=== PATIENT | male | born 1960 | race Caucasian/White ===

== ENCOUNTER 2020-06-17 15:37 | Inpatient (IN) | payer MEDICAID ==
[~2020-06-17] VITALS: Ht 172.7 cm; Wt 84.7 kg
[2020-06-17] MEDS ORDERED: AMLO-258 PO (15:54)
[2020-06-17] MEDS ORDERED: ATEN-72 PO (15:54)
[2020-06-17] MEDS ORDERED: LOSA50TA37 PO (15:54)
[2020-06-17] MEDS ORDERED: LORazepam 1 MG TABLET PO ONE (16:45)
[2020-06-17] MEDS ORDERED: FURO20 PO (17:13)
[2020-06-17] MEDS ORDERED: HydrALAZINE HCL 20 MG/ML VIAL IVP ONE ×2 (17:15→17:45)
[2020-06-17 17:21] LABS: BASOPHILS % (AUTO) 0.9 % (0.0-2.0); EOSINOPHILS % (AUTO) 0.6 % (1.0-6.0); HEMATOCRIT 44.8 % (41-53); LYMPHOCYTES # (AUTO) 1.1 K/uL (1.0-4.8); LYMPHOCYTES % (AUTO) 13.2 % (22.0-44.0); MEAN CORPUSCULAR HEMOGLOBIN 32.1 pg (26.0-34.0); MEAN CORPUSCULAR HGB CONC 33.5 G/dL (31.0-37.0); MEAN CORPUSCULAR VOLUME 96 fL (80-100); MONOCYTES # (AUTO) 0.7 K/uL (0.1-1.0); MONOCYTES % (AUTO) 8.9 % (2.0-9.0); NEUTROPHILS # (AUTO) 6.2 K/uL (1.8-7.7); NEUTROPHILS % (AUTO) 76.4 % (40.0-70.0); PLATELET COUNT (AUTO) 145 K/uL (150-450); RED BLOOD CELL COUNT(AUTO) 4.68 MIL/uL (4.50-5.90); RED CELL DISTRIBUTION WIDTH 13.1 % (11.5-14.5)
[2020-06-17 17:33] LABS: PROTHROMBIN TIME 10.7 SEC (9.4-11.6)
[2020-06-17 17:51] LABS: B-TYPE NATRIURETIC PEPTIDE 53 pg/mL (0-100)
[2020-06-17 17:57] LABS: ANION GAP 10 mmol/L (8-16); CALCIUM, TOTAL 8.8 mg/dL (8.8-10.5); CARBON DIOXIDE 29 mmol/L (22-29); CHLORIDE 100 mmol/L (98-107); CREATININE 1.05 mg/dL (0.60-1.30); GLOMERULAR FILTR. RATE CALC > 60 mL/min (>60); GLUCOSE,RANDOM 104 mg/dL (70-110); POTASSIUM 3.6 mmol/L (3.5-5.1); SODIUM SERUM 139 mmol/L (136-145); UREA NITROGEN, BLOOD 17 mg/dL (7-18)
[2020-06-17 18:01] LABS: BILIRUBIN,URINE NEGATIVE (NEGATIVE); GLUCOSE, URINE (UA) NEGATIVE (NEGATIVE); KETONES,URINE NEGATIVE (NEGATIVE); LEUKOCYTE ESTERASE ,URINE NEGATIVE (NEGATIVE); NITRATE,URINE NEGATIVE (NEGATIVE); OCCULT BLOOD,URINE NEGATIVE (NEGATIVE); PROTEIN,URINE NEGATIVE (NEGATIVE); UROBILINOGEN,URINE 0.2 mg/dL (<=1.0)
[2020-06-17 18:07] LABS: APPEARANCE,URINE CLEAR (CLEAR)
[2020-06-17 18:22] LABS: ALANINE AMINOTRANSFERASE 24 U/L (12-78); ALBUMIN 4.2 g/dL (3.4-5.0); ALKALINE PHOSPHATASE 79 U/L (46-116); ASPARTATE AMINOTRANSFERASE 16 U/L (15-37); BILIRUBIN,TOTAL 0.6 mg/dL (0.1-1.0); CREATINE KINASE, TOTAL ONLY 83 U/L (39-308); TOTAL PROTEIN, SERUM 7.3 g/dL (6.4-8.2)
[2020-06-17] MEDS ORDERED: ASPIRIN 325 MG DR TABLET PO ONE (19:15)
[2020-06-17 19:58] LABS: COVID AG,FIA SOURCE NASOPHARYNGEAL
[2020-06-17] MEDS ORDERED: 0.9% SODIUM CHLORIDE 10 ML SYRINGE IVP PRN (20:00)
[2020-06-17] MEDS ORDERED: ACETAMINOPHEN 325 MG TABLET PO PRN (20:30)
[2020-06-17] MEDS ORDERED: ONDANSETRON HCL 4 MG/2 ML VIAL IVP PRN (20:30)
[2020-06-17] MEDS: HEPARIN SODIUM,PORCINE 5,000 UNITS/ML VIAL SQ SCH (20:47)
[2020-06-17] MEDS ORDERED: ATORVASTATIN CALCIUM 20 MG TABLET PO SCH (21:00)
[2020-06-17 21:27] LABS: CHOL/HDL RATIO 3.2 (4.2-7.3); CHOLESTEROL 218 mg/dL (131-200); HDL CHOLESTEROL 69 mg/dL (40-60); LDL CHOL (CALC.) 134 mg/dL (0-130); TRIGLYCERIDES 75 mg/dL (15-150)
[2020-06-17 21:33] LABS: HEMOGLOBIN A1C 5.3 % (3.8-5.6)
[2020-06-17 22:13] VITALS: BP 155/88
[2020-06-18] VITALS (8 sets, daily range): BP systolic 129–191; BP diastolic 77–109
[2020-06-18] MEDS ORDERED: LORazepam 2 MG TABLET PO PRN (07:15)
[2020-06-18] MEDS ORDERED: MAGNESIUM SULFATE 2 GM, MVI, ADULT NO.1 WITH VIT K 10 ML, THIAMINE 100 MG, FOLIC ACID 1... IV SCH ×5 (08:00)
[2020-06-18] MEDS: ASPIRIN 81 MG CHEWABLE TABLET PO SCH (09:27)
[2020-06-18] MEDS: HEPARIN SODIUM,PORCINE 5,000 UNITS/ML VIAL SQ SCH ×2 (09:28→21:03)
[2020-06-18] MEDS ORDERED: LORazepam 2 MG/ML VIAL IVP PRN (10:15)
[2020-06-18] MEDS: AmLODIPine BESYLATE 10 MG TABLET PO SCH (13:10)
[2020-06-18] MEDS: CloNIDine HCL 0.1 MG TABLET PO PRN (15:39)
[2020-06-18] MEDS: ATORVASTATIN CALCIUM 40 MG TABLET PO SCH (21:03)
[2020-06-19] VITALS (7 sets, daily range): BP systolic 98–174; BP diastolic 43–102
[2020-06-19] MEDS ORDERED: LORazepam 2 MG TABLET PO PRN (07:00)
[2020-06-19] MEDS ORDERED: GELATIN SPONGE,ABSORBABLE 100 MM TP ONE ×2 (08:16→09:22)
[2020-06-19] MEDS ORDERED: GELATIN SPONGE,ABSORBABLE 50 MM TP ONE ×2 (08:16→09:22)
[2020-06-19] MEDS: HEPARIN SODIUM,PORCINE 5,000 UNITS/ML VIAL SQ SCH ×2 (08:30→20:17)
[2020-06-19] MEDS: AmLODIPine BESYLATE 10 MG TABLET PO SCH (08:47)
[2020-06-19] MEDS: CloNIDine HCL 0.1 MG TABLET PO PRN (08:47)
[2020-06-19] MEDS: MULTIVITAMINS WITH MINERALS, THERAPEUTIC TABLET PO SCH (08:48)
[2020-06-19] MEDS: ASPIRIN 81 MG CHEWABLE TABLET PO SCH (08:48)
[2020-06-19] MEDS ORDERED: LORazepam 2 MG TABLET PO SCH (09:00)
[2020-06-19] MEDS ORDERED: HEPARIN SODIUM,PORCINE 5,000 UNITS/ML VIAL ONE (09:19)
[2020-06-19] MEDS ORDERED: SODIUM CHLORIDE 0.9% 500 ML IV ONE ×4 (09:19→10:01)
[2020-06-19] MEDS ORDERED: THROMBIN, BOVINE 20000 UNITS/VIAL POWDER TP ONE (09:21)
[2020-06-19] MEDS ORDERED: PHENYLEPHRINE 200 MG/D5%-WATER 250 ML IV PRN (09:30)
[2020-06-19] MEDS ORDERED: SODIUM CHLORIDE 0.9% 0 ML ONE (09:43)
[2020-06-19] MEDS ORDERED: NITROPRUSSIDE SODIUM 50 MG in DEXTROSE 5%-WATER 248 ML IV PRN (09:45)
[2020-06-19] MEDS ORDERED: ACETAMINOPHEN 1000 MG/ISO-OSM 100 ML IV ONE (10:09)
[2020-06-19] MEDS ORDERED: MICROFIBRILLAR COLLAGEN 1 GM PACKAGE TP ONE (10:09)
[2020-06-19] MEDS ORDERED: RINGERS SOLUTION,LACTATED 1,000 ML IV ONE ×3 (10:25→10:58)
[2020-06-19] MEDS ORDERED: VANCOMYCIN HCL 1 GM/VIAL ONE (11:03)
[2020-06-19] MEDS ORDERED: VANCOMYCIN HCL 500 MG/VIAL ONE (11:04)
[2020-06-19] MEDS ORDERED: SUGAMMADEX SODIUM 200 MG/2 ML VIAL IVP ONE ×2 (11:29→12:09)
[2020-06-19] MEDS ORDERED: HYDROCODONE/ACETAMINOPHEN 5-325 MG TABLET PO PRN (12:15)
[2020-06-19] MEDS: ATORVASTATIN CALCIUM 40 MG TABLET PO SCH (20:17)
[2020-06-20] VITALS (7 sets, daily range): BP systolic 132–168; BP diastolic 56–105
[2020-06-20] MEDS ORDERED: DEXAMETHASONE SOD PHOS 4 MG/ML VIAL IVP ONE (01:25)
[2020-06-20] MEDS ORDERED: PROPOFOL 1% 20 ML VIAL IVP ONE (01:25)
[2020-06-20] MEDS ORDERED: FentaNYL CITRATE PF 100 MCG/2 ML VIAL IVP ONE (01:25)
[2020-06-20] MEDS ORDERED: MIDAZOLAM HCL 2 MG/2 ML VIAL IVP ONE (01:25)
[2020-06-20] MEDS ORDERED: LIDOCAINE/PF 2% 5 ML VIAL IM ONE (01:25)
[2020-06-20] MEDS ORDERED: ONDANSETRON HCL 4 MG/2 ML VIAL IVP ONE (01:25)
[2020-06-20] MEDS ORDERED: ROCURONIUM BROMIDE 10 MG/ML 5 ML VIAL IVP ONE (01:25)
[2020-06-20] MEDS: ASPIRIN 81 MG CHEWABLE TABLET PO SCH (08:11)
[2020-06-20] MEDS: AmLODIPine BESYLATE 10 MG TABLET PO SCH (08:11)
[2020-06-20] MEDS: MULTIVITAMINS WITH MINERALS, THERAPEUTIC TABLET PO SCH (08:11)
[2020-06-20] MEDS: HEPARIN SODIUM,PORCINE 5,000 UNITS/ML VIAL SQ SCH ×2 (08:12→20:09)
[2020-06-20 11:09] LABS: BASOPHILS % (AUTO) 0.6 % (0.0-2.0); EOSINOPHILS % (AUTO) 0.1 % (1.0-6.0); HEMATOCRIT 44.4 % (41-53); HEMOGLOBIN 14.6 g/dL (13.5-17.5); LYMPHOCYTES # (AUTO) 1.9 K/uL (1.0-4.8); LYMPHOCYTES % (AUTO) 14.1 % (22.0-44.0); MEAN CORPUSCULAR HEMOGLOBIN 31.6 pg (26.0-34.0); MEAN CORPUSCULAR VOLUME 96 fL (80-100); MONOCYTES # (AUTO) 1.3 K/uL (0.1-1.0); MONOCYTES % (AUTO) 9.5 % (2.0-9.0); NEUTROPHILS # (AUTO) 10.1 K/uL (1.8-7.7); NEUTROPHILS % (AUTO) 75.7 % (40.0-70.0); PLATELET COUNT (AUTO) 171 K/uL (150-450); RED BLOOD CELL COUNT(AUTO) 4.64 MIL/uL (4.50-5.90); RED CELL DISTRIBUTION WIDTH 12.5 % (11.5-14.5)
[2020-06-20 11:17] LABS: ANION GAP 6 mmol/L (8-16); CALCIUM, TOTAL 8.6 mg/dL (8.8-10.5); CARBON DIOXIDE 29 mmol/L (22-29); CHLORIDE 103 mmol/L (98-107); CREATININE 1.11 mg/dL (0.60-1.30); GLOMERULAR FILTR. RATE CALC > 60 mL/min (>60); GLUCOSE,RANDOM 84 mg/dL (70-110); POTASSIUM 4.2 mmol/L (3.5-5.1); SODIUM SERUM 138 mmol/L (136-145); UREA NITROGEN, BLOOD 20 mg/dL (7-18)
[2020-06-20] MEDS: LISINOPRIL 20 MG TABLET PO SCH (12:05)
[2020-06-20] MEDS: ATORVASTATIN CALCIUM 40 MG TABLET PO SCH (20:09)
[2020-06-21 05:00] VITALS: BP 172/108
[2020-06-21] MEDS: CloNIDine HCL 0.1 MG TABLET PO PRN (05:28)
[2020-06-21 06:21] LABS: BASOPHILS % (AUTO) 0.4 % (0.0-2.0); EOSINOPHILS % (AUTO) 0.9 % (1.0-6.0); HEMATOCRIT 39.8 % (41-53); HEMOGLOBIN 13.5 g/dL (13.5-17.5); LYMPHOCYTES # (AUTO) 1.5 K/uL (1.0-4.8); LYMPHOCYTES % (AUTO) 20.5 % (22.0-44.0); MEAN CORPUSCULAR HEMOGLOBIN 32.9 pg (26.0-34.0); MEAN CORPUSCULAR HGB CONC 34.1 G/dL (31.0-37.0); MEAN CORPUSCULAR VOLUME 97 fL (80-100); MONOCYTES # (AUTO) 0.8 K/uL (0.1-1.0); MONOCYTES % (AUTO) 10.9 % (2.0-9.0); NEUTROPHILS # (AUTO) 4.8 K/uL (1.8-7.7); NEUTROPHILS % (AUTO) 67.3 % (40.0-70.0); PLATELET COUNT (AUTO) 132 K/uL (150-450); RED BLOOD CELL COUNT(AUTO) 4.12 MIL/uL (4.50-5.90); RED CELL DISTRIBUTION WIDTH 12.7 % (11.5-14.5)
[2020-06-21] MEDS ORDERED: LORazepam 1 MG TABLET PO PRN (07:00)
[2020-06-21 07:45] VITALS: BP 148/104
[2020-06-21] MEDS: LISINOPRIL 20 MG TABLET PO SCH (08:02)
[2020-06-21] MEDS: AmLODIPine BESYLATE 10 MG TABLET PO SCH (08:02)
[2020-06-21] MEDS: ASPIRIN 81 MG CHEWABLE TABLET PO SCH (08:02)
[2020-06-21] MEDS: MULTIVITAMINS WITH MINERALS, THERAPEUTIC TABLET PO SCH (08:02)
[2020-06-21] MEDS: HEPARIN SODIUM,PORCINE 5,000 UNITS/ML VIAL SQ SCH (08:03)
[2020-06-21] MEDS ORDERED: LORazepam 1 MG TABLET PO SCH (09:00)
[2020-06-21] MEDS ORDERED: ASPI-1450 PO (10:26)
[2020-06-21] MEDS ORDERED: ATOR20TA86 PO (10:26)
[2020-06-21] MEDS ORDERED: MULT-1203 PO (10:27)
[2020-06-21] MEDS ORDERED: LISI-894 PO (10:27)
[2020-06-21] MEDS ORDERED: ATENOLOL 50 MG TABLET PO SCH (10:30)
[2020-06-21 11:00] VITALS: BP 136/85
[2020-06-22] MEDS ORDERED: LORazepam 1 MG TABLET PO PRN (07:00)
== END 2020-06-21 13:50 | disposition home or self-care (01) | DRG 24 ==
LOC: EMS 15:38 → 5S 20:05
PROVIDERS: ADMIT Internal Medicine; ATTEND Internal Medicine
PROC: 03UL0JZ Supplement Left Internal Carotid Artery with Synthetic Substitute, Open Approach (ICD-10-PCS; 2020-06-19)
PROC: 03CL0ZZ Extirpation of Matter from Left Internal Carotid Artery, Open Approach (ICD-10-PCS; principal; 2020-06-19 11:00)
DX: I65.22 Occlusion and stenosis of left carotid artery (principal); F10.20 Alcohol dependence, uncomplicated; I10 Essential (primary) hypertension; F41.9 Anxiety disorder, unspecified; I16.1 Hypertensive emergency; Z20.822 Contact with and (suspected) exposure to COVID-19; Z88.0 Allergy status to penicillin; Z79.899 Other long term (current) drug therapy
CPT/HCPCS: 70450; 70551; 71045; 80048; 80053; 80061; 81003; 82550; 83036; 83880; 84484; 85025; 85610; 85730; 87426; 88304; 88311; 93005; 93306; 93880; 99291; A9575; G0378; J0131; J0360; J0690; J1100; J1644; J2250; J2370; J2405; J2704; J3010; J3370; J3411; J3475; J3490; J7030; J7040; J7060; J7120; 36415-L1; 36415-TC

== ENCOUNTER 2020-06-23 08:41 | Emergency (ER) | payer MEDICAID ==
[~2020-06-23] VITALS: Ht 172.7 cm; Wt 84.7 kg
[~2020-06-23 08:41] MED LIST: AMLO-258 PO; ASPI-1450 PO; ATEN-72 PO; ATOR20TA86 PO; LISI-894 PO; LOSA50TA37 PO; MULT-1203 PO
[2020-06-23 10:05] VITALS: BP 149/111
== END 2020-06-23 10:12 | disposition home or self-care (01) ==
LOC: EMS 08:47
DX: I10 Essential (primary) hypertension (principal); Z88.0 Allergy status to penicillin; Z79.82 Long term (current) use of aspirin; Z79.899 Other long term (current) drug therapy
CPT/HCPCS: 99281; Z7502

== ENCOUNTER 2020-06-30 10:23 | Emergency (ER) | payer MEDICAID ==
[~2020-06-30] VITALS: Ht 172.7 cm; Wt 77.3 kg
[2020-06-30 12:15] VITALS: BP 129/87
== END 2020-06-30 12:17 | disposition home or self-care (01) ==
LOC: EMS 10:26
DX: Z48.01 Encounter for change or removal of surgical wound dressing (principal); E78.00 Pure hypercholesterolemia, unspecified; I10 Essential (primary) hypertension; Z86.73 Personal history of transient ischemic attack (TIA), and cerebral infarction without residual deficits
CPT/HCPCS: 99281; Z7502

== ENCOUNTER 2020-07-30 10:45 | Emergency (ER) | payer MEDICAID ==
[~2020-07-30] VITALS: Ht 177.8 cm; Wt 90.9 kg
[2020-07-30] MEDS ORDERED: PredniSONE 20 MG TABLET PO ONE (11:45)
[2020-07-30] MEDS ORDERED: ALBUTEROL SULFATE 5 MG/ML 20 ML NEB SOLN [BULK] NEB ONE (11:45)
[2020-07-30 12:45] VITALS: BP 152/84
== END 2020-07-30 13:11 | disposition home or self-care (01) ==
LOC: EMS 10:53
DX: T78.40XA Allergy, unspecified, initial encounter (principal); E78.00 Pure hypercholesterolemia, unspecified; Z88.0 Allergy status to penicillin; Z79.899 Other long term (current) drug therapy; I10 Essential (primary) hypertension; X58.XXXA Exposure to other specified factors, initial encounter
CPT/HCPCS: 93005; 94640; 99283; J7512

== ENCOUNTER 2020-10-18 10:10 | Emergency (ER) | payer MEDICAID ==
[~2020-10-18] VITALS: Ht 170.2 cm; Wt 81.8 kg
[2020-10-18 10:11] VITALS: BP 145/97
[2020-10-18] MEDS ORDERED: BACITRACIN 0.9 GM PACKET OINTMENT TP ONE (12:15)
[2020-10-18] MEDS ORDERED: LIDOCAINE 1% 10 ML VIAL SQ ONE (12:15)
[2020-10-18] MEDS ORDERED: DOXYCYCLINE HYCLATE 100 MG TABLET PO ONE (12:15)
== END 2020-10-18 14:04 | disposition home or self-care (01) ==
LOC: EMS 10:10
DX: S61.211A Laceration without foreign body of left index finger without damage to nail, initial encounter (principal); I10 Essential (primary) hypertension; E78.00 Pure hypercholesterolemia, unspecified; Z86.73 Personal history of transient ischemic attack (TIA), and cerebral infarction without residual deficits; W26.0XXA Contact with knife, initial encounter; Y93.89 Activity, other specified; Y92.89 Other specified places as the place of occurrence of the external cause; Y99.8 Other external cause status
CPT/HCPCS: 12001; 99283; J3490

== ENCOUNTER 2021-01-04 20:43 | Emergency (ER) | payer MEDICAID ==
[~2021-01-04] VITALS: Ht 172.7 cm; Wt 90.0 kg
[2021-01-04] MEDS ORDERED: LORazepam 1 MG TABLET PO ONE (22:15)
[2021-01-04] MEDS ORDERED: AmLODIPine BESYLATE 5 MG TABLET PO ONE (22:15)
[2021-01-05] MEDS ORDERED: CloNIDine HCL 0.2 MG TABLET PO ONE (00:15)
[2021-01-05 00:30] VITALS: BP 157/90
== END 2021-01-05 02:11 | disposition home or self-care (01) ==
LOC: EMS 20:44
DX: I10 Essential (primary) hypertension (principal); M79.602 Pain in left arm; E78.00 Pure hypercholesterolemia, unspecified; G45.9 Transient cerebral ischemic attack, unspecified
CPT/HCPCS: 84484; 99284

== ENCOUNTER 2021-01-16 05:32 | Emergency (ER) | payer MEDICAID ==
[~2021-01-16] VITALS: Ht 172.7 cm; Wt 90.9 kg
[2021-01-16 05:34] VITALS: BP 167/113
[2021-01-16] MEDS ORDERED: CLON0.1T2 PO (05:50)
[2021-01-16 06:23] LABS: BASOPHILS % (AUTO) 1.1 % (0.0-2.0); EOSINOPHILS % (AUTO) 3.8 % (1.0-6.0); HEMATOCRIT 38.6 % (41-53); HEMOGLOBIN 13.2 g/dL (13.5-17.5); LYMPHOCYTES # (AUTO) 0.8 K/uL (1.0-4.8); LYMPHOCYTES % (AUTO) 18.1 % (22.0-44.0); MEAN CORPUSCULAR HEMOGLOBIN 32.8 pg (26.0-34.0); MEAN CORPUSCULAR HGB CONC 34.3 G/dL (31.0-37.0); MEAN CORPUSCULAR VOLUME 96 fL (80-100); MONOCYTES # (AUTO) 0.4 K/uL (0.1-1.0); MONOCYTES % (AUTO) 9.7 % (2.0-9.0); NEUTROPHILS % (AUTO) 67.3 % (40.0-70.0); PLATELET COUNT (AUTO) 127 K/uL (150-450); RED BLOOD CELL COUNT(AUTO) 4.03 MIL/uL (4.50-5.90); RED CELL DISTRIBUTION WIDTH 12.8 % (11.5-14.5)
[2021-01-16 06:31] LABS: ANION GAP 5 mmol/L (8-16); CALCIUM, TOTAL 8.7 mg/dL (8.8-10.5); CARBON DIOXIDE 28 mmol/L (22-29); CHLORIDE 106 mmol/L (98-107); CREATININE 1.12 mg/dL (0.60-1.30); GLOMERULAR FILTR. RATE CALC > 60 mL/min (>60); GLUCOSE,RANDOM 111 mg/dL (70-110); POTASSIUM 4.5 mmol/L (3.5-5.1); SODIUM SERUM 139 mmol/L (136-145); UREA NITROGEN, BLOOD 15 mg/dL (7-18)
== END 2021-01-16 07:08 | disposition home or self-care (01) ==
LOC: EMS 05:34
DX: I10 Essential (primary) hypertension (principal); E78.00 Pure hypercholesterolemia, unspecified; Z88.0 Allergy status to penicillin; Z79.899 Other long term (current) drug therapy
CPT/HCPCS: 71045; 80048; 84484; 85025; 93005; 99285; 36415-L1; 36415-TC

== ENCOUNTER 2021-06-05 02:03 | Emergency (ER) | payer MEDICAID ==
[~2021-06-05] VITALS: Ht 167.6 cm; Wt 81.8 kg
[~2021-06-05 02:03] MED LIST changes: +CLON0.1T2 PO; +LOSA-382 PO; -LOSA50TA37 PO
[2021-06-05 03:08] VITALS: BP 162/98
== END 2021-06-05 03:10 | disposition home or self-care (01) ==
LOC: EMS 02:05
DX: I10 Essential (primary) hypertension (principal); E78.00 Pure hypercholesterolemia, unspecified; Z88.0 Allergy status to penicillin; Z86.73 Personal history of transient ischemic attack (TIA), and cerebral infarction without residual deficits; Z79.899 Other long term (current) drug therapy; Z79.82 Long term (current) use of aspirin
CPT/HCPCS: 99281; Z7502

== ENCOUNTER 2021-06-08 18:10 | Emergency (ER) | payer MEDICAID ==
[~2021-06-08] VITALS: Ht 175.3 cm; Wt 90.9 kg
[2021-06-08 19:59] LABS: BASOPHILS % (AUTO) 0.7 % (0.0-2.0); EOSINOPHILS % (AUTO) 2.5 % (1.0-6.0); HEMATOCRIT 35.9 % (41-53); HEMOGLOBIN 12.4 g/dL (13.5-17.5); LYMPHOCYTES # (AUTO) 1.2 K/uL (1.0-4.8); LYMPHOCYTES % (AUTO) 20.6 % (22.0-44.0); MEAN CORPUSCULAR HEMOGLOBIN 32.7 pg (26.0-34.0); MEAN CORPUSCULAR HGB CONC 34.7 G/dL (31.0-37.0); MEAN CORPUSCULAR VOLUME 95 fL (80-100); MONOCYTES # (AUTO) 0.6 K/uL (0.1-1.0); MONOCYTES % (AUTO) 10.4 % (2.0-9.0); NEUTROPHILS # (AUTO) 3.7 K/uL (1.8-7.7); NEUTROPHILS % (AUTO) 65.8 % (40.0-70.0); PLATELET COUNT (AUTO) 120 K/uL (150-450); RED CELL DISTRIBUTION WIDTH 13.7 % (11.5-14.5)
[2021-06-08 20:13] LABS: CALCIUM, TOTAL 8.4 mg/dL (8.8-10.5); CREATININE 1.22 mg/dL (0.60-1.30)
[2021-06-08 20:20] LABS: POTASSIUM 4.2 mmol/L (3.5-5.1)
[2021-06-08 22:36] VITALS: BP 148/96
== END 2021-06-09 00:01 | disposition home or self-care (01) ==
LOC: EMS 18:14
DX: R07.89 Other chest pain (principal); I10 Essential (primary) hypertension; E78.00 Pure hypercholesterolemia, unspecified; Z86.69 Personal history of other diseases of the nervous system and sense organs; Z98.890 Other specified postprocedural states; Z88.0 Allergy status to penicillin
CPT/HCPCS: 71045; 80048; 84484; 85025; 93005; 99285; 36415-L1; 36415-TC

== ENCOUNTER 2021-11-18 22:59 | Emergency (ER) | payer MEDICAID ==
[~2021-11-18] VITALS: Ht 172.7 cm; Wt 88.6 kg
[2021-11-18 23:06] VITALS: BP 149/99
[2021-11-18 23:32] LABS: BASOPHILS % (AUTO) 1.2 % (0.0-2.0); EOSINOPHILS % (AUTO) 6.1 % (1.0-6.0); HEMATOCRIT 40.7 % (41-53); HEMOGLOBIN 13.5 g/dL (13.5-17.5); LYMPHOCYTES # (AUTO) 1.6 K/uL (1.0-4.8); LYMPHOCYTES % (AUTO) 28.5 % (22.0-44.0); MEAN CORPUSCULAR HEMOGLOBIN 32.3 pg (26.0-34.0); MEAN CORPUSCULAR HGB CONC 33.2 G/dL (31.0-37.0); MEAN CORPUSCULAR VOLUME 97 fL (80-100); MONOCYTES # (AUTO) 0.7 K/uL (0.1-1.0); MONOCYTES % (AUTO) 11.5 % (2.0-9.0); NEUTROPHILS % (AUTO) 52.7 % (40.0-70.0); PLATELET COUNT (AUTO) 139 K/uL (150-450); RED BLOOD CELL COUNT(AUTO) 4.18 MIL/uL (4.50-5.90); RED CELL DISTRIBUTION WIDTH 13.6 % (11.5-14.5)
[2021-11-18 23:48] LABS: ANION GAP 6 mmol/L (8-16); CALCIUM, TOTAL 8.4 mg/dL (8.8-10.5); CARBON DIOXIDE 28 mmol/L (22-29); CHLORIDE 104 mmol/L (98-107); CREATININE 1.19 mg/dL (0.60-1.30); GLUCOSE,RANDOM 110 mg/dL (70-110); POTASSIUM 4.5 mmol/L (3.5-5.1); SODIUM SERUM 138 mmol/L (136-145); UREA NITROGEN, BLOOD 17 mg/dL (7-18)
[2021-11-18 23:50] LABS: GLOMERULAR FILTR. RATE CALC > 60 mL/min (>60)
[2021-11-18 23:53] LABS: B-TYPE NATRIURETIC PEPTIDE 62 pg/mL (0-100)
[2021-11-18 23:58] LABS: ALANINE AMINOTRANSFERASE 20 U/L (12-78); ALBUMIN 3.4 g/dL (3.4-5.0); ALKALINE PHOSPHATASE 107 U/L (46-116); ASPARTATE AMINOTRANSFERASE 20 U/L (15-37); BILIRUBIN,TOTAL 0.4 mg/dL (0.1-1.0); CREATINE KINASE, TOTAL ONLY 78 U/L (39-308); PHOSPHORUS 3.7 mg/dL (2.5-4.9); TOTAL PROTEIN, SERUM 6.8 g/dL (6.4-8.2)
== END 2021-11-19 00:21 | disposition home or self-care (01) ==
LOC: EMS 23:03
DX: R00.2 Palpitations (principal); E78.00 Pure hypercholesterolemia, unspecified; I10 Essential (primary) hypertension; Z86.73 Personal history of transient ischemic attack (TIA), and cerebral infarction without residual deficits; Z98.890 Other specified postprocedural states; Z88.0 Allergy status to penicillin
CPT/HCPCS: 71045; 80053; 82550; 83735; 83880; 84100; 84484; 85025; 93005; 99285; 36415-L1; 36415-TC

== ENCOUNTER 2022-02-08 09:11 | Emergency (ER) | payer MEDICAID, OTHER ==
[~2022-02-08] VITALS: Ht 175.3 cm; Wt 90.0 kg
[2022-02-08 10:06] LABS: BASOPHILS % (AUTO) 1.1 % (0.0-2.0); EOSINOPHILS % (AUTO) 1.7 % (1.0-6.0); HEMATOCRIT 41.5 % (41-53); HEMOGLOBIN 13.8 g/dL (13.5-17.5); LYMPHOCYTES # (AUTO) 0.7 K/uL (1.0-4.8); MEAN CORPUSCULAR HEMOGLOBIN 31.8 pg (26.0-34.0); MEAN CORPUSCULAR HGB CONC 33.2 G/dL (31.0-37.0); MEAN CORPUSCULAR VOLUME 96 fL (80-100); MONOCYTES # (AUTO) 0.6 K/uL (0.1-1.0); MONOCYTES % (AUTO) 10.2 % (2.0-9.0); NEUTROPHILS # (AUTO) 4.2 K/uL (1.8-7.7); PLATELET COUNT (AUTO) 142 K/uL (150-450); RED BLOOD CELL COUNT(AUTO) 4.32 MIL/uL (4.50-5.90); RED CELL DISTRIBUTION WIDTH 13.3 % (11.5-14.5)
[2022-02-08 10:18] LABS: CALCIUM, TOTAL 8.4 mg/dL (8.8-10.5); CREATININE 1.25 mg/dL (0.60-1.30); POTASSIUM 4.5 mmol/L (3.5-5.1)
[2022-02-08 10:40] VITALS: BP 164/99
[2022-02-08 10:43] LABS: ALBUMIN 3.4 g/dL (3.4-5.0); BILIRUBIN,TOTAL 0.8 mg/dL (0.1-1.0)
[2022-02-08 11:42] LABS: MAGNESIUM 2.2 mg/dL (1.80-2.40); PHOSPHORUS 3.2 mg/dL (2.5-4.9); THYROID STIMULATING HORMONE 1.67 uIU/mL (0.36-3.74)
== END 2022-02-08 12:23 | disposition home or self-care (01) ==
LOC: EMS 09:11
DX: R00.2 Palpitations (principal); E78.00 Pure hypercholesterolemia, unspecified; I10 Essential (primary) hypertension; G45.9 Transient cerebral ischemic attack, unspecified; Z88.0 Allergy status to penicillin
CPT/HCPCS: 71045; 80053; 82550; 83735; 83880; 84100; 84443; 84484; 85025; 93005; 99285; 36415-L1; 36415-TC

== ENCOUNTER 2023-02-23 10:34 | Emergency (ER) | payer OTHER ==
[~2023-02-23] VITALS: Ht 172.7 cm; Wt 95.5 kg
[~2023-02-23 10:34] MED LIST changes: +ATOR20TA PO; -ATOR20TA86 PO; -CLON0.1T2 PO; -LISI-894 PO
[2023-02-23 10:44] VITALS: TEMP 98.5
[2023-02-23] MEDS ORDERED: CLON0.3T PO (10:45)
[2023-02-23 11:41] LABS: BASOPHILS % (AUTO) 0.6 % (0.0-2.0); EOSINOPHILS % (AUTO) 2.7 % (1.0-6.0); HEMATOCRIT 39.3 % (41-53); HEMOGLOBIN 13.4 g/dL (13.5-17.5); LYMPHOCYTES # (AUTO) 0.7 K/uL (1.0-4.8); LYMPHOCYTES % (AUTO) 17.2 % (22.0-44.0); MEAN CORPUSCULAR HEMOGLOBIN 32.9 pg (26.0-34.0); MEAN CORPUSCULAR HGB CONC 34.1 G/dL (31.0-37.0); MEAN CORPUSCULAR VOLUME 96 fL (80-100); MONOCYTES # (AUTO) 0.4 K/uL (0.1-1.0); MONOCYTES % (AUTO) 9.9 % (2.0-9.0); NEUTROPHILS # (AUTO) 2.8 K/uL (1.8-7.7); NEUTROPHILS % (AUTO) 69.6 % (40.0-70.0); PLATELET COUNT (AUTO) 141 K/uL (150-450); RED BLOOD CELL COUNT(AUTO) 4.08 MIL/uL (4.50-5.90); RED CELL DISTRIBUTION WIDTH 13.8 % (11.5-14.5); WHITE BLOOD COUNT (AUTO) 4.1 K/uL (4.5-11.0)
[2023-02-23 11:44] LABS: CALCIUM, TOTAL 8.6 mg/dL (8.8-10.5); CREATININE 1.22 mg/dL (0.60-1.30); POTASSIUM 3.7 mmol/L (3.5-5.1)
[2023-02-23 11:51] LABS: ALBUMIN 3.5 g/dL (3.4-5.0); BILIRUBIN,TOTAL 0.6 mg/dL (0.1-1.0); TOTAL PROTEIN, SERUM 6.7 g/dL (6.4-8.2)
[2023-02-23 11:52] LABS: TROPONIN I-HIGH SENSITIVITY 11 ng/L (<76)
[2023-02-23 13:39] VITALS: BP 148/97; PULSE 91; RESP 16
== END 2023-02-23 13:40 | disposition home or self-care (01) ==
LOC: EMS 11:12
DX: I10 Essential (primary) hypertension (principal); E78.00 Pure hypercholesterolemia, unspecified; Z98.890 Other specified postprocedural states; Z88.0 Allergy status to penicillin
CPT/HCPCS: 70450; 80053; 82550; 83880; 84484; 85025; 93005; 99284

== ENCOUNTER 2023-03-09 10:59 | Emergency (ER) | payer OTHER ==
[~2023-03-09] VITALS: Ht 175.3 cm; Wt 95.5 kg
[~2023-03-09 10:59] MED LIST changes: +CLON0.3T PO
[2023-03-09 11:06] VITALS: TEMP 98.1
[2023-03-09] MEDS ORDERED: SULFAMETHOX/TRIMETH DS 800-160 MG/TABLET PO ONE (13:15)
[2023-03-09] MEDS ORDERED: BACTDSB PO (13:23)
[2023-03-09 13:29] VITALS: BP 143/82; PULSE 80; RESP 18
== END 2023-03-09 19:37 | disposition home or self-care (01) ==
LOC: EMS 10:59
DX: M79.644 Pain in right finger(s) (principal); Z53.21 Procedure and treatment not carried out due to patient leaving prior to being seen by health care provider
CPT/HCPCS: 99281; Z7502; Z7610

== ENCOUNTER 2023-08-09 05:30 | Emergency (ER) | payer OTHER ==
[~2023-08-09] VITALS: Ht 172.7 cm; Wt 96.8 kg
[~2023-08-09 05:30] MED LIST changes: -ASPI-1450 PO; -ATOR20TA PO; +ATOR40TA71 PO; +CLON0.1T2 PO; -CLON0.3T PO; +CORTSOL AS; +FAMO40TA7 PO; +GABA-1181 PO; +HYDR12.54 PO; -LOSA-382 PO; +LOSA100T59 PO; -MULT-1203 PO
[2023-08-09 08:03] VITALS: BP 177/115; PULSE 74; RESP 17; TEMP 98.1
== END 2023-08-09 06:00 | disposition left against medical advice (07) ==
LOC: EMS 05:31
DX: R00.2 Palpitations (principal); R03.0 Elevated blood-pressure reading, without diagnosis of hypertension; I10 Essential (primary) hypertension; Z88.0 Allergy status to penicillin; Z53.21 Procedure and treatment not carried out due to patient leaving prior to being seen by health care provider
CPT/HCPCS: 93005

== ENCOUNTER 2023-08-09 08:22 | Emergency (ER) | payer OTHER ==
[~2023-08-09] VITALS: Ht 172.7 cm; Wt 96.8 kg
[2023-08-09 09:06] LABS: BASOPHILS % (AUTO) 1.1 % (0.0-2.0); HEMATOCRIT 40.3 % (41-53); HEMOGLOBIN 13.7 g/dL (13.5-17.5); LYMPHOCYTES % (AUTO) 18.5 % (22.0-44.0); MEAN CORPUSCULAR HEMOGLOBIN 32.6 pg (26.0-34.0); MEAN CORPUSCULAR VOLUME 96 fL (80-100); MONOCYTES # (AUTO) 0.6 K/uL (0.1-1.0); MONOCYTES % (AUTO) 10.8 % (2.0-9.0); NEUTROPHILS # (AUTO) 3.4 K/uL (1.8-7.7); NEUTROPHILS % (AUTO) 66.6 % (40.0-70.0); PLATELET COUNT (AUTO) 164 K/uL (150-450); RED CELL DISTRIBUTION WIDTH 13.4 % (11.5-14.5); WHITE BLOOD COUNT (AUTO) 5.1 K/uL (4.5-11.0)
[2023-08-09 09:35] LABS: TROPONIN I-HIGH SENSITIVITY 9 ng/L (<76)
[2023-08-09 10:01] LABS: CALCIUM, TOTAL 8.5 mg/dL (8.8-10.5); CREATININE 1.22 mg/dL (0.60-1.30); POTASSIUM 3.6 mmol/L (3.5-5.1)
[2023-08-09 10:30] LABS: PH,URINE DRUG SCREEN 5.5 (5.0-8.0)
[2023-08-09 10:48] LABS: ALCOHOL, URINE DRUG SCREEN NEGATIVE (NEGATIVE); AMPHET/METH SCREEN,URINE NEGATIVE (NEGATIVE); BARBITURATE SCREEN, URINE NEGATIVE (NEGATIVE); BENZODIAZEPINES SCREEN,URINE NEGATIVE (NEGATIVE); CANNABINOID SCREEN,URINE NEGATIVE (NEGATIVE); COCAINE SCREEN,URINE NEGATIVE (NEGATIVE); METHADONE SCREEN, URINE NEGATIVE (NEGATIVE); OPIATE SCREEN,URINE NEGATIVE (NEGATIVE); PHENCYCLIDINE SCREEN,URINE NEGATIVE (NEGATIVE)
[2023-08-09 11:06] VITALS: TEMP 98
[2023-08-09 11:32] VITALS: BP 151/97; PULSE 78; RESP 14
== END 2023-08-09 11:42 | disposition home or self-care (01) ==
LOC: EMS 08:22
DX: R00.2 Palpitations (principal); F41.9 Anxiety disorder, unspecified; F10.10 Alcohol abuse, uncomplicated; I10 Essential (primary) hypertension; Z79.899 Other long term (current) drug therapy; Y90.6 Blood alcohol level of 120-199 mg/100 ml
CPT/HCPCS: 80048; 80307; 84484; 85025; 93005; 99284

== ENCOUNTER 2023-08-09 19:56 | Emergency (ER) | payer OTHER ==
[~2023-08-09] VITALS: Ht 172.7 cm; Wt 96.8 kg
[2023-08-09 20:01] VITALS: TEMP 99
[2023-08-09 20:10] LABS: COVID AG,FIA SOURCE NASAL SWAB
[2023-08-09 20:37] LABS: INFLUENZA TYPE A NEGATIVE FOR TYPE A (NEGATIVE); INFLUENZA TYPE B NEGATIVE FOR TYPE B (NEGATIVE); SARS-COV2 (COVID) ANTIGEN,FIA Negative (Negative)
[2023-08-09 23:37] LABS: BASOPHILS % (AUTO) 0.3 % (0.0-2.0); EOSINOPHILS % (AUTO) 0.3 % (1.0-6.0); HEMOGLOBIN 12.6 g/dL (13.5-17.5); LYMPHOCYTES # (AUTO) 0.3 K/uL (1.0-4.8); LYMPHOCYTES % (AUTO) 2.9 % (22.0-44.0); MEAN CORPUSCULAR HEMOGLOBIN 32.5 pg (26.0-34.0); MEAN CORPUSCULAR VOLUME 96 fL (80-100); MONOCYTES # (AUTO) 0.3 K/uL (0.1-1.0); MONOCYTES % (AUTO) 3.2 % (2.0-9.0); NEUTROPHILS # (AUTO) 8.8 K/uL (1.8-7.7); PLATELET COUNT (AUTO) 112 K/uL (150-450); RED BLOOD CELL COUNT(AUTO) 3.88 MIL/uL (4.50-5.90); RED CELL DISTRIBUTION WIDTH 13.4 % (11.5-14.5); WHITE BLOOD COUNT (AUTO) 9.4 K/uL (4.5-11.0)
[2023-08-09 23:41] LABS: NEUTROPHILS % (AUTO) 93.3 % (40.0-70.0)
[2023-08-09 23:45] LABS: CALCIUM, TOTAL 8.4 mg/dL (8.8-10.5); CREATININE 1.45 mg/dL (0.60-1.30)
[2023-08-09 23:55] LABS: TROPONIN I-HIGH SENSITIVITY 9 ng/L (<76)
[2023-08-10 00:02] LABS: POTASSIUM 2.8 mmol/L (3.5-5.1)
[2023-08-10] MEDS: POTASSIUM CHLORIDE 20 MEQ ER TABLET PO ONE (00:27)
[2023-08-10 00:45] LABS: APPEARANCE,URINE CLEAR (CLEAR); BILIRUBIN,URINE NEGATIVE (NEGATIVE); COLOR,URINE LIGHT YELLOW (YELLOW); GLUCOSE, URINE (UA) NEGATIVE (NEGATIVE); KETONES,URINE NEGATIVE (NEGATIVE); LEUKOCYTE ESTERASE ,URINE NEGATIVE (NEGATIVE); NITRATE,URINE NEGATIVE (NEGATIVE); OCCULT BLOOD,URINE NEGATIVE (NEGATIVE); PROTEIN,URINE NEGATIVE (NEGATIVE); SPECIFIC GRAVITIY, URINE 1.007 (1.003-1.030); UROBILINOGEN,URINE <=1.0 mg/dL (<=1.0)
[2023-08-10 00:52] LABS: ALCOHOL, URINE DRUG SCREEN NEGATIVE (NEGATIVE); AMPHET/METH SCREEN,URINE NEGATIVE (NEGATIVE); BARBITURATE SCREEN, URINE NEGATIVE (NEGATIVE); BENZODIAZEPINES SCREEN,URINE NEGATIVE (NEGATIVE); CANNABINOID SCREEN,URINE NEGATIVE (NEGATIVE); COCAINE SCREEN,URINE NEGATIVE (NEGATIVE); METHADONE SCREEN, URINE NEGATIVE (NEGATIVE); OPIATE SCREEN,URINE NEGATIVE (NEGATIVE); PHENCYCLIDINE SCREEN,URINE NEGATIVE (NEGATIVE)
[2023-08-10 01:26] VITALS: BP 121/85; PULSE 84; RESP 18
[2023-08-10 01:44] LABS: TROPONIN I-HIGH SENSITIVITY 7 ng/L (<76)
== END 2023-08-10 03:00 | disposition home or self-care (01) ==
LOC: EMS 19:56
DX: F10.129 Alcohol abuse with intoxication, unspecified (principal); E86.0 Dehydration; E78.00 Pure hypercholesterolemia, unspecified; I10 Essential (primary) hypertension; Z86.73 Personal history of transient ischemic attack (TIA), and cerebral infarction without residual deficits; Z88.0 Allergy status to penicillin; Z20.822 Contact with and (suspected) exposure to COVID-19
CPT/HCPCS: 99285; 71045; 87426; 80048; 81003; 84484; 85025; 87804; 36415; 93005; 80307; G0480

== ENCOUNTER 2023-12-12 09:49 | Emergency (ER) | payer OTHER ==
[~2023-12-12] VITALS: Ht 172.7 cm; Wt 86.4 kg
[2023-12-12 10:09] VITALS: TEMP 98.6
[2023-12-12 10:42] LABS: BASOPHILS % (AUTO) 1.1 % (0.0-2.0); EOSINOPHILS % (AUTO) 4.4 % (1.0-6.0); HEMATOCRIT 42.7 % (41-53); HEMOGLOBIN 14.7 g/dL (13.5-17.5); LYMPHOCYTES # (AUTO) 0.9 K/uL (1.0-4.8); LYMPHOCYTES % (AUTO) 17.7 % (22.0-44.0); MEAN CORPUSCULAR HEMOGLOBIN 32.7 pg (26.0-34.0); MEAN CORPUSCULAR HGB CONC 34.3 G/dL (31.0-37.0); MEAN CORPUSCULAR VOLUME 95 fL (80-100); MONOCYTES # (AUTO) 0.4 K/uL (0.1-1.0); MONOCYTES % (AUTO) 8.5 % (2.0-9.0); NEUTROPHILS # (AUTO) 3.4 K/uL (1.8-7.7); NEUTROPHILS % (AUTO) 68.3 % (40.0-70.0); PLATELET COUNT (AUTO) 136 K/uL (150-450); RED BLOOD CELL COUNT(AUTO) 4.48 MIL/uL (4.50-5.90); WHITE BLOOD COUNT (AUTO) 4.9 K/uL (4.5-11.0)
[2023-12-12 10:52] LABS: ANION GAP 6 mmol/L (8-16); CALCIUM, TOTAL 8.8 mg/dL (8.8-10.5); CARBON DIOXIDE 30 mmol/L (22-29); CHLORIDE 101 mmol/L (98-107); CREATININE 1.33 mg/dL (0.60-1.30); GLOMERULAR FILTR. RATE CALC 54 mL/min (>60); GLUCOSE,RANDOM 103 mg/dL (70-110); SODIUM SERUM 137 mmol/L (136-145); UREA NITROGEN, BLOOD 17 mg/dL (7-18)
[2023-12-12 10:57] LABS: ALANINE AMINOTRANSFERASE 24 U/L (12-78); ALBUMIN 3.4 g/dL (3.4-5.0); ALKALINE PHOSPHATASE 105 U/L (46-116); ASPARTATE AMINOTRANSFERASE 21 U/L (15-37); BILIRUBIN,TOTAL 1.3 mg/dL (0.1-1.0); TOTAL PROTEIN, SERUM 6.8 g/dL (6.4-8.2)
[2023-12-12 10:59] LABS: TROPONIN I-HIGH SENSITIVITY 8 ng/L (<76)
[2023-12-12 11:01] LABS: B-TYPE NATRIURETIC PEPTIDE 63 pg/mL (0-100)
[2023-12-12 11:19] LABS: ALCOHOL, BLOOD (SERUM) < 3 mg/dL (0-10)
[2023-12-12 12:14] VITALS: BP 113/90; PULSE 59; RESP 16; O2SAT 97
== END 2023-12-12 12:35 | disposition home or self-care (01) ==
LOC: EMS 09:49
DX: I10 Essential (primary) hypertension (principal); R07.89 Other chest pain; F10.20 Alcohol dependence, uncomplicated; E78.00 Pure hypercholesterolemia, unspecified; Z98.890 Other specified postprocedural states; Z88.0 Allergy status to penicillin
CPT/HCPCS: 99285; 71045; 80053; 83880; 84484; 85025; 36415; 93005; G0480

== ENCOUNTER 2024-01-13 09:29 | Emergency (ER) | payer OTHER ==
[~2024-01-13] VITALS: Ht 177.8 cm; Wt 97.0 kg
[~2024-01-13 09:29] MED LIST changes: -AMLO-258 PO; -CORTSOL AS; -GABA-1181 PO
[2024-01-13] MEDS ORDERED: CHLO10CA6 PO (09:44)
[2024-01-13] MEDS ORDERED: ASPI-1444 PO (09:44)
[2024-01-13 10:45] LABS: BASOPHILS % (AUTO) 0.6 % (0.0-2.0); EOSINOPHILS % (AUTO) 2.3 % (1.0-6.0); HEMATOCRIT 40.3 % (41-53); HEMOGLOBIN 13.4 g/dL (13.5-17.5); LYMPHOCYTES # (AUTO) 0.9 K/uL (1.0-4.8); LYMPHOCYTES % (AUTO) 16.2 % (22.0-44.0); MEAN CORPUSCULAR HEMOGLOBIN 32.2 pg (26.0-34.0); MEAN CORPUSCULAR HGB CONC 33.1 G/dL (31.0-37.0); MEAN CORPUSCULAR VOLUME 97 fL (80-100); MONOCYTES # (AUTO) 0.5 K/uL (0.1-1.0); MONOCYTES % (AUTO) 9.3 % (2.0-9.0); NEUTROPHILS # (AUTO) 3.9 K/uL (1.8-7.7); NEUTROPHILS % (AUTO) 71.6 % (40.0-70.0); PLATELET COUNT (AUTO) 127 K/uL (150-450); RED BLOOD CELL COUNT(AUTO) 4.15 MIL/uL (4.50-5.90); RED CELL DISTRIBUTION WIDTH 13.5 % (11.5-14.5); WHITE BLOOD COUNT (AUTO) 5.4 K/uL (4.5-11.0)
[2024-01-13 10:48] LABS: CALCIUM, TOTAL 8.4 mg/dL (8.8-10.5); CREATININE 1.47 mg/dL (0.60-1.30); POTASSIUM 4.3 mmol/L (3.5-5.1)
[2024-01-13 10:57] LABS: TROPONIN I-HIGH SENSITIVITY 9 ng/L (<76)
[2024-01-13] MEDS ORDERED: HYDR-4527 PO (13:05)
[2024-01-13] MEDS ORDERED: HYDR12.56 PO (13:05)
[2024-01-13] MEDS ORDERED: TAMS0.4C94 PO (13:05)
[2024-01-13] MEDS ORDERED: ISOS30TA68 PO (13:05)
[2024-01-13] MEDS ORDERED: MIRT-93 PO (13:05)
[2024-01-13] MEDS: IBUPROFEN 600 MG TABLET PO ONE (13:16)
[2024-01-13] MEDS: LIDOCAINE 5% TRANSDERMAL PATCH TD ONE (13:17)
[2024-01-13 14:22] VITALS: BP 175/99; PULSE 75; RESP 16; TEMP 98; O2SAT 98
[2024-01-13] MEDS ORDERED: IBUP-1492 PO (14:24)
[2024-01-13] MEDS ORDERED: CYCL-448 PO (14:24)
== END 2024-01-13 14:43 | disposition home or self-care (01) ==
LOC: EMS 10:03
DX: M54.9 Dorsalgia, unspecified (principal); M25.512 Pain in left shoulder; F10.20 Alcohol dependence, uncomplicated; E78.00 Pure hypercholesterolemia, unspecified; I10 Essential (primary) hypertension; Z98.890 Other specified postprocedural states; Z88.0 Allergy status to penicillin; Z79.82 Long term (current) use of aspirin
CPT/HCPCS: 71045; 80048; 84484; 85025; 93005; 99285; 36415-L1; 36415-TC